=== PATIENT | male | born 1960 | race Caucasian/White ===

== ENCOUNTER → 2017-09-22 19:07 | Outpatient (CLI) | payer MEDICAID ==
[~2017-09-22] VITALS: Ht 182.9 cm; Wt 113.6 kg
--- NOTE | ~2017-09-22 | OP ---
PATIENT NAME: JUAN THAO MEDICAL RECORD: [id number] :64 LOCATION:D.CAT ADMISSION DATE: SURGEON: ALISON LOPEZ MD DATE OF OPERATION: 09/22/2017 PROCEDURE: Cath plus four-vessel plus intervention to the right coronary artery. CATHETERS: A 5-Lebanese sheath. 5/4 left and right Rúal, 5/4 pig. Procedure was well tolerated. The patient was returned to sal[place], sheath removed. Adequate hemostasis obtained. FINDINGS: FOUR-VESSEL ARTERIOGRAPHY ON THE RIGHT COMMON CAROTID: 1. The right common carotid was selectively engaged. Right common carotid shows no significant stenosis. Right internal carotid has some mild wall disease, but no flow obstructive stenosis. Right external carotid, no flow obstructive stenosis. 2. The left subclavian was then selectively engaged. This showed mild wall disease with no significant stenosis. Left internal carotid shows mild wall disease, no significant stenosis. Left external carotid, mild wall disease with no significant stenosis. CORONARY ANATOMY: LEFT MAIN: Left main is free of disease. LAD: Fills for a short period of time, then is seen filling via competitive flow from the SALINAS. CIRCUMFLEX: Circumflex free of disease. RIGHT CORONARY ARTERY: Has a mid vessel stenosis about 80%. LV GRAM: Normal wall motion, normal systolic function. SALINAS TO LAD: Widely patent throughout its course without evidence of post-anastomotic stenosis. PLAN: Intervention of the right coronary artery. DESCRIPTION OF PROCEDURE: A 5-Lebanese sheath was exchanged for a 6-Lebanese sheath. Hockey stick guided catheter provided excellent guide catheter support followed by 300 cm Whisper wire. This was placed across the 80% stenosed RCA down this portion of the vessel. Balloon used was a 3.5 x 12 mm Emerge balloon up to 12 atmospheres for 45 seconds. Final angiography shows excellent resolution of 80% stenosis, no significant residual. LADY flow was 3 throughout the procedure. Integrilin was used in the case. Sheath was closed with ExoSeal device. IMPRESSION: 1. Minimal disease of both carotid systems. 2. Successful intervention of the right coronary artery. TRANSINT:[id number] Voice Confirmation ID: [id number] DOCUMENT ID: [id number] OPERATIVE REPORT [id number] KEESHAALISON MCWILLIAMS MD at 1258 CC: [id number] DICTATION DATE: 10/06/17 1510 BENCH JEWELER: 10/06/17 1525 DEP CLI 09/22/17 [facility] [address] [place] [address]
--- NOTE | ~2017-09-22 | HEMODYNAMI ---
PATIENT:JUAN THAO MEDICAL RECORD: [id number] : 64 LOCATION:[facility] ADMISSION DATE: 09/22/17 Generatedon:09/22/201714:47 Patient name: JUAN THAO Patient #: [id number] SSN: DO B: 1960 Date of study: 09/22/2017 Page: Of Hemodynamic Procedure Report Patient Data Patient Demographics Procedure consent was obtained First Name: JUAN Gender: Male Last Name: KEESHA : 1960 Patient #: [id number] Age: 57 year(s) Race: Unknown Additional ID: [id number] Contact details Address: [address] [place] [address] State: [place] City: [place] Zip code: [address] Past Medical History Allergies Allergen Reaction Date Comments Reported Other allergy 09/22/2017 PCN Admission Admission Data Admission Date: 09/22/2017 Admission Time: 13:30 Procedure Procedure Types Cath Procedure Diagnostic Procedure LHC LHC w/Coronaries w/Grafts Sedation Charges Moderate Sedation up to 15 minutes PCI Procedure PTCA PTCA Initial Peripheral Cath Diagnostic Procedure 4-Vessel Carotid Cervical Bilateral Procedure Description Procedure Date Procedure Date: 09/22/2017 Procedure Start Time: 14:23 Procedure Staff Name Function Tito Leblanc MD Performing Physician Betty Cano RT Monitor Alok Martinez RN Nurse Jahaira Diane RT Scrub Procedure Data Cath Procedure Fluoroscopy Diagnostic fluoroscopy Total fluoroscopy Time: 5.8 time: 5.8 min min Diagnostic fluoroscopy Total fluoroscopy dose: 767 dose: 767 mGy mGy Contrast Material Contrast Material Type Amount (ml) Isovue 300 116 Entry Location Entry Primary Successful Side Size Upsize Upsize Entry Closure Succes sful Closure Location (Fr) 1 (Fr) 2 (Fr) Remarks Device Remarks Femoral Right 5 Fr 6 Fr Exoseal artery Short Estimated blood loss: 10 ml Diagnostic catheters Device Type Used For End Catheter Placement MULTIPACK JL 4.0 5Fr Procedure catheter MULTIPACK 3DRC 5Fr Procedure catheter MULTIPACK Pigtail 5 Fr Procedure catheter Procedure Complications No complications Procedure Medications Medication Administration Route Dosage 0.9% NaCl I.V. 100 ml/hr Oxygen etCO2 Nasal cannula 2 l/min Heparin Flush Bag added to field 2 bags (1000units/500ml NS) Lidocaine 2% added to field 20 Versed I.V. 2 mg Fentanyl I.V. 100 mcg Heparin Bolus I.V. 5000 units Integrilin (Bolus I.V. 10.2 ml 2mg/ml) Integrilin (Bolus wasted 9.8 ml 2mg/ml) Plavix P.O. 600 mg Hemodynamics Rest Heart Rate: 69 (bpm) Pressure Samples Time Site Value (mmHg) Purpose Heart Use Rate(bpm) 14:31 LV 123/10,21 Snapshot 69 14:31 AO 126/71(92) Pullback 70 14:31 LV 110/15,27 Pullback 70 Gradients Valve Time Site 1 Site 2 Mean SEP/DFP Peak To Heart Use (mmHg) (sec/min) Peak Rate (mmHg) (bpm) Aortic 14:31 LV AO 0 7 0 70 110/15,27 126/71(92) Calculations Valve P-P Mean Valve Index Valve Source Name Gradient Area Flow (cm2) Aortic 0 0 0 0 Snapshots Pre Cath Intra NCS Post Cath Vital Signs Time Heart Resp SPO2 etCO2 NIBP (mmHg) Rhythm Pain Sedation Rate (ipm) (%) (mmHg) Status Level (bpm) 14:11:37 62 17 98 0 130/79(106) NSR 0 (11) 10(A) , No pain 14:16:30 65 11 100 42 127/69(85) NSR 0 (11) 10(A) , No pain 14:28:31 68 18 99 36 127/73(0) NSR 0 (11) 10(A) , No pain 14:28:35 69 17 99 36 126/74(91) NSR 0 (11) 10(A) , No pain 14:33:22 71 19 99 38.2 127/73(101) NSR 0 (11) 10(A) , No pain 14:38:05 71 17 99 38.2 111/72(94) NSR 0 (11) 10(A) , No pain 14:43:26 71 19 100 39 117/70(97) NSR 0 (11) 10(A) , No pain Medications Time Medication Route Dose Verified Delivered Reason Notes Effectiveness by by 14:14:24 0.9% NaCl I.V. 100 Alok Alok Per physician ml/hr Juan Martinez RN RN 14:14:33 Oxygen etCO2 2 Alok Alok Per physician Nasal l/min Juan Martinez cannula RN RN 14:14:44 Heparin Flush added 2 Alok Alok used for Bag to bags Juan Martinez procedure (1000units/500ml field RN RN NS) 14:14:55 Lidocaine 2% added 20ml Alok Alok for local to vial Juan Martinez anesthetic field RN RN 14:16:35 Versed I.V. 2 mg Alok Alok for sedation Juan Martinez RN RN 14:16:44 Fentanyl I.V. 100 Alok Alok for sedation mcg Juan Martinez RN RN 14:36:34 Heparin Bolus I.V. 5000 Alok Alok for units Juan Martinez anticoagulation RN RN 14:36:50 Integrilin I.V. 10.2 Alok Alok for (Bolus 2mg/ml) ml Juan Martinez antiplatelet RN RN therapy 14:37:06 Integrilin wasted 9.8ml Alok Alok to sharp's (Bolus 2mg/ml) Juan Martinez RN RN 14:43:46 Plavix P.O. 600 Alok Alok for mg Juan Martinez antiplatelet RN RN therapy Procedure Log Time Note 14:01:30 Alok Martinez RN sent for patient. Start room use. 14:01:31 Time tracking: Regular hours (M-F 7:00 - 5:00) 14:01:34 Plan of Care:Hemodynamics will remain stable., Cardiac rhythm will remain stable., Comfort level will be maintained., Respiratory function will remain adequate., Patient/ family verbilizes understanding of procedure., Procedure tolerated without complication., Recovers from procedure without complications.. 14:03:40 Patient received from Pre/Post Procedure Room to CCL 1 Alert and oriented. Tansferred to table in Supine position. 14:03:42 Warm blankets applied, and shiva hugger turned on for patient comfort. 14:03:42 Correct patient and procedure confirmed by team. 14:05:05 Signed procedure consent form obtained from patient. 14:05:07 ECG and BP/O2 sat monitors applied to patient. 14:05:19 H&P Date Dictated: 09/13/2017 Within 30 days and on chart., H&P Addendum completed by physician on day of procedure. (MUST COMPLETE FOR ALL OUTPATIENTS). 14:05:21 Family in waiting room. 14:05:23 Patient NPO since Midnight. 14:06:01 Patient allergic to Other allergyPCN 14:06:08 Is the patient allergic to Iodine/contrast media? No. 14:09:30 Vital chart was started 14:09:31 Full Disclosure recording started 14:10:57 Is patient on blood thinner?No 14:11:00 Patient diabetic? Yes. 14:11:02 If diabetic: On Metformin? Yes 14:11:06 If on Metformin: Last Dose? 09/21/2017 14:11:13 Snore? Yes 14:11:15 Sleep apnea? No 14:11:17 Sleep apnea? No 14:11:35 IV patent on arrival in left forearm with 0.9% NaCl at O. 14:11:43 Lab results completed and on chart. 14:11:49 Right groin area was prepped with chlora-prep and draped in sterile fashion 14:11:50 Physician paged 14:11:51 Physician arrived 14:11:52 --------ALL STOP TIME OUT------ 14:11:52 Final Timeout: patient, procedure, and site verified with staff and physician. All members of the team are in agreement. 14:11:58 Right groin site verified by team. 14:12:02 Physical assessment completed. ASA score P 2 - A patient with mild systemic disease as per Tito Leblanc MD. 14:12:07 Sedation plan: IV Moderate Sedation Medication:Versed, Fentanyl 14:12:18 Use device set Femoral Dx 14:12:19 ACIST Syringe (13255) opened to sterile field. 14:12:20 Bag Decanter (2002S) opened to sterile field. 14:12:20 Medline Cath Pack ([id number]) opened to sterile field. 14:12:21 DIAGNOSTIC WIRE .035 260cm J wire (935626) opened to sterile field. 14:12:22 ACIST Hand Control (55556) opened to sterile field. 14:12:23 ACIST Manifold (70057) opened to sterile field. 14:12:23 DIAGNOSTIC Multipack 5Fr catheter set ([id number]) opened to sterile field. 14:12:24 Tegaderm 4 x 4 (1626W) opened to sterile field. 14:12:24 PERCUTANEOUS ENTRY 19GA needle opened to sterile field. 14:12:31 SHEATH Prelude 5Fr 0.035 (ILW-4G-21-035) opened to sterile field. 14:14:24 0.9% NaCl 100 ml/hr I.V. was administered by Alok Martinez RN; Per physician; 14:14:33 Oxygen 2 l/min etCO2 Nasal cannula was administered by Alok Martinez RN; Per physician; 14:14:44 Heparin Flush Bag (1000units/500ml NS) 2 bags added to field was administered by Alok Martinez RN; used for procedure; 14:14:55 Lidocaine 2% 20ml vial added to field was administered by Alok Martinez RN; for local anesthetic; 14:16:35 Versed 2 mg I.V. was administered by Alok Martinez RN; for sedation; 14:16:44 Fentanyl 100 mcg I.V. was administered by Alok Martinez RN; for sedation; 14:23:29 Zero performed for pressure channel P1 14:23:40 Procedure started. 14:23:56 Local anesthetic to right femoral artery with Lidocaine 2% by Tito Leblanc MD.INITIAL ACCESS ONLY 14:24:21 A 5 Fr sheath was inserted into the Right Femoral artery 14:25:02 A MULTIPACK JL 4.0 5Fr catheter was advanced over the wire and used for Procedure. 14:25:21 LCA angiography performed. 14:25:44 Catheter removed. 14:25:52 A MULTIPACK 3DRC 5Fr catheter was advanced over the wire and used for Procedure. 14:26:48 RCA angiography performed. 14:28:53 Procedure type changed to Cath procedure, Diagnostic procedure, LHC, LHC w/Coronaries w/Grafts, Sedation Charges, Moderate Sedation up to 15 minutes, PCI procedure, PTCA, PTCA Initial, Peripheral Cath Diagnostic Procedure, 4-Vessel, Carotid Cervical Bilateral 14:29:10 SALINAS angiography performed. 14:29:22 SALINAS to LAD angiography performed. 14:30:20 Right carotid angiography performed. 14:30:21 Left carotid angiography performed. 14:30:44 Catheter removed. 14:30:57 A MULTIPACK Pigtail 5 Fr catheter was advanced over the wire and used for Procedure. 14:32:21 EF : 55 % 14:32:55 Catheter removed. 14:32:56 Proceeding to intervention. 14:33:21 SHEATH 6FR Bohannon (HIA243) opened to sterile field. 14:33:21 INFLATOR Merit BasixCompak (KN2524) opened to sterile field. 14:33:22 WHISPER 300cm guide wire ([id number]) opened to sterile field. 14:33:45 Sheath upsized to a 6 Fr Short. 14:35:41 GUIDE 6FR HS I SH catheter ([id number]) opened to sterile field. 14:35:56 whisper wire advanced. 14:36:34 Heparin Bolus 5000 units I.V. was administered by Alok Martinez RN; for anticoagulation; 14:36:50 Integrilin (Bolus 2mg/ml) 10.2 ml I.V. was administered by Alok Martinez RN; for antiplatelet therapy; 14:37:06 Integrilin (Bolus 2mg/ml) 9.8ml wasted was administered by Alok Martinez RN; to sharp's; 14:37:28 Wire advanced across lesion. 14:38:40 Inflate balloon Inflation number: 1 A EMERGE OTW 3.5 x 12 balloon ([id number]) was prepped and advanced across the Mid RCA, then inflated to 10 KATHE for 0:45 (min:sec). 14:40:20 Inflation number: 2 The EMERGE OTW 3.5 x 12 balloon ([id number]) was reinflated across the Mid RCA, to 14 KATHE for 0:45 (min:sec). 14:42:25 Wire removed. 14:42:26 Balloon removed over the wire. 14:42:56 Sheath removed intact; hemostasis achieved with Exoseal to the Right Femoral artery. 14:42:59 Procedure ended.(Physican Out) 14:43:46 Plavix 600 mg P.O. was administered by Alok Martinez RN; for antiplatelet therapy; 14:44:17 Fluoroscopy time 05.80 minutes. 14:44:22 Fluoroscopy dose: 767 mGy 14:44:22 Flurop Dose total: 767 14:44:27 Contrast amount:Isovue 300 116ml. 14:44:29 Sharps counted by scrub and verified by R.N. 14:44:30 Insertion/operative site no bleeding no hematoma. 14:44:37 Post right femoral artery:stable 14:44:44 Post-procedure physical assessment completed. ASA score P 2 - A patient with mild systemic disease as per Tito Leblanc MD. 14:44:48 Post procedure rhythm: sinus rhythm 14:44:52 Estimated blood loss: 10 ml 14:45:04 Post procedure instruction explained to patient.Patient verbalizes understanding. 14:45:38 Procedure and supply charges have been captured, reviewed, submitted and are correct. 14:46:48 Procedure Complication : No complications 14:46:52 Vital chart was stopped 14:46:58 See physician's report for complete and final results. 14:47:02 Report given to Pre/Post Procedure Room. 14:47:05 Patient transfered to Pre/Post Procedure Room with Stretcher. 14:47:18 ACC-PCI Only Patient was given prescriptions, or instructed by Tito Leblanc MD to start/continue the following medications upon discharge: Plavix 14:47:21 End room use (Document Last) Intervention Summary Intervention Notes Time ActionType Lesion and Equipment Action# Pressure Duration Attributes Used 14:38:40 Inflate Mid RCA EMERGE OTW 1 10 00:45 balloon 3.5 x 12 balloon ([id number]) 14:40:20 Reinflate Mid RCA EMERGE OTW 2 14 00:45 balloon 3.5 x 12 balloon ([id number]) Device Usage Item Name Manufacture Quantity Catalog Number Hospital Part Current Minimal Lot# / Charge Number Stock Stock Serial# Code ACIST Syringe Acist 1 33147 626715 321613 057704 20 (98165) Medical Systems Inc Bag Decanter Microtek 1 540493 94141 394737 5 () Medical Inc. Medline Cath Cardinal 1 [id number] 890714 40443 498457 5 Pack Health ([id number]) DIAGNOSTIC WIRE St Nikolai 1 760361 247248 309196 745513 30 .035 260cm J wire (435119) ACIST Hand Acist 1 62240 284450 946793 361233 5 Control (66830) Medical Systems Inc ACIST Manifold Acist 1 25116 331252 778790 733905 5 (33638) Medical Systems Inc DIAGNOSTIC Cardinal 1 [id number] 165219 93204 584859 30 Multipack 5Fr Health catheter set ([id number]) Tegaderm 4 x 4 3M 1 1626W 874576 632855 175728 5 (1626W) PERCUTANEOUS Cook Medical 1 [id number] 867060 315163 5 ENTRY 19GA needle SHEATH Prelude Merit 1 [id number]-0C-[id number] 400859 854168 567640 5 5Fr 0.035 Medical (JAS-8N-52-035) MULTIPACK JL Cardinal 1 480052 5 4.0 5Fr Health catheter MULTIPACK 3DRC Cardinal 1 129538 5 5Fr catheter Health MULTIPACK Cardinal 1 728144 5 Pigtail 5 Fr Health catheter SHEATH 6FR Terumo 1 RBR514 249210 055202 394333 40 Bohannon (SCR854) INFLATOR Merit Merit 1 [id number] 844201 998767 451805 15 [employer]oco[employer] Inc.[facility] Medical ([id number]) WHISPER 300cm Ferrer 1 [id number] 922606 240606 437405 5 guide wire Vascular ([id number]) GUIDE 6FR HS I Medtronic 1 [id number] 531981 05771 231871 1 SH catheter ([id number]) EMERGE OTW 3.5 Corning 1 [id number] 451666 257011 982125 5 [id number] x 12 balloon Scientific ([id number]) Signature Audit [place] Stage Time Signature Unsigned Intra-Procedure 09/22/2017 Betty Cano 2:47:44 PM RT(R) Signatures Monitor : Betty Cano Signature : RT Date : Time : [facility] [address] [place] [place] [address]
[2017-09-22 10:41] VITALS: BP 114/57; Ht 182.9 cm; Wt 113.6 kg
[2017-09-22 10:52] LABS: BASOPHILS 0.5 % (0-2); EOSINOPHILS 4.4 % (0-7); HEMATOCRIT 35.9 % (42.0-54.0); HEMOGLOBIN 11.4 g/dL (13.5-17.5); IMMATURE GRANULOCYTES 0.2 % (0-5); LYMPHOCYTES 32.3 % (15-50); MCH 28.5 pg (26.0-34.0); MCHC 31.8 g/dL (31.0-37.0); MCV 89.8 fL (80.0-100.0); MEAN PLATELET VOLUME 10.2 fL (7.4-10.4); MONOCYTES 6.4 % (2-11); NEUTROPHILS 56.2 % (40-80); PLATELET COUNT 301 10x3/uL (130-400); RDW 14.8 % (11.5-14.5); WBC 9.3 10x3/uL (4.8-10.8)
[2017-09-22 11:45] LABS: ANION GAP 11.3 mmol/L (8-16); CALCIUM 8.4 mg/dL (8.5-10.1); CARBON DIOXIDE 29.3 mmol/L (21.0-32.0); CREATININE - SERUM 1.2 mg/dL (0.6-1.3); POTASSIUM - SERUM 3.6 mmol/L (3.5-5.1)
[~2017-09-22 19:07] MED LIST: ACTOS30 MG PO; BAYER CHEWABLE81 MG PO; GLIPIZIDE10 MG PO; GLUCOPHAGE1000 MG PO; HCTZ25 MG PO; LIPITOR40 MG PO; METOPROLOL TART25 MG PO; PAROXETINE HCL10 MG PO; PLAVIX75 MG PO; PRINIVIL20 MG PO; ZYRTEC10 MG PO
== END | disposition home or self-care (01) ==
LOC: D.CATH 13:30
PROVIDERS: Internal Medicine Interventional Cardiology
DX: I25.10 Atherosclerotic heart disease of native coronary artery without angina pectoris (principal); Z01.812 Encounter for preprocedural laboratory examination